=== PATIENT | male | born 2005 | race Two or more races ===

== ENCOUNTER → 2024-03-25 | Outpatient (CLI) | payer MEDICAID, SELFPAY ==
--- NOTE | 2024-03-25 15:30 | XR_ITS ---
Examination: Testicular sonography complete TECHNIQUE: Grayscale sonographic images testes, assessment arterial inflow venous outflow Doppler spectral analysis carful analysis Exam date and time: March 25, 2024 1612 hours INDICATIONS: Right testicular lump noticed beginning one month ago. FINDINGS: Right testis 4.3 x 2.0 x 2.4 cm Epididymis 10 mm Right epididymal cysts 6 x 5 mm, 3 x 3 mm Arterial flow testicle. No testicular mass Left testis 4.0 x 1.9 x 3.2 cm Epididymis 3.4 cm Arterial flow testicle. No testicular mass IMPRESSION: Benign right epididymal cysts Suspicious for left epididymitis
== END | disposition home or self-care (01) ==
LOC: CDIM 15:50
PROVIDERS: Referring Provider Internal Medicine; Visit Provider Internal Medicine
DX: N50.89 Other specified disorders of the male genital organs (principal)
CPT/HCPCS: 76870